=== PATIENT | male | born 1945 | race Caucasian/White ===

== ENCOUNTER 2018-09-19 17:28 | Inpatient (IN) | payer OTHER, BC | END 2018-09-22 15:00 | disposition home or self-care (01) | LOC: ED 17:28 → IC 19:28 → ED 17:28 → IC 19:28 → ED 17:28 → IC 19:28 → ED 17:28 → IC 09-22 15:00 → ED 17:28 → DU 19:28 | DX: J96.00 Acute respiratory failure, unspecified whether with hypoxia or hypercapnia (principal); J44.1 Chronic obstructive pulmonary disease with (acute) exacerbation; J44.9 Chronic obstructive pulmonary disease, unspecified; E11.9 Type 2 diabetes mellitus without complications; E78.00 Pure hypercholesterolemia, unspecified; J11.1 Influenza due to unidentified influenza virus with other respiratory manifestations; I48.0 Paroxysmal atrial fibrillation; I16.0 Hypertensive urgency ==